=== PATIENT | female | born 2005 | race Caucasian/White ===

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

== ENCOUNTER 2025-02-12 21:00 | Emergency (ER) | payer SELFPAY ==
--- OUTSIDE RECORDS SUMMARY | 2024-12-20 11:30 | XMS_ITS | Encounter Summary ---
Author Organization [facility] Address [facility] [place] [address] Care Team Providers Care Aging Box Hand Name Role Phone Felecia Marie MD Primary Care Provider [phone] Source Comments This information has been disclosed to you from confidential records protectfrom disclosure by state law. You shall make no further disclosure of thisinformation without the specific, written, and informed release of theindividual to whom it pertains, or as otherwise permitted by law. A generalauthorization for the release of medical or other information is not sufficientfor the purposes of the release of HIV test results or diagnoses. [id number] Reason for Visit * Reason Comments New Consult - Oral Maxillofacial Surgery Encounter Details Date Type Department Care Team (Late st Contact Info) Description 12/20/2024 11:30 AM EST - 12/20/2024 11:59 PM [facility] Hospital Encounter [facility] hearing health technician at [facility] [address] [facility] [address] [place] [address] Polina Eagle DMD, MD [address] [facility]. [place] [phone] Storm Ayala DMD [facility] [place] [address] Dental caries (Primary Dx); Pericoronitis Discharge Disposition: Home or Self Care WITHOUT Home Care Services Social History Tobacco Use Types Packs/Day Years Used Date Smoking Tobacco: Never Assessed Comments Unknown Sex and Gender Information Value Date Recorded Sex Assigned at Not on file Legal Sex Female 9:54 PM EST Gender Identity Not on file Sexual Orientation Not on file documented as of this encounter Last Filed Vital Signs Vital Sign Reading Time Taken Comments Blood Pressure 136/106 12/20/2024 11:59 AM EST Pulse - - Temperature - - Respiratory Rate - - Oxygen Saturation - - Inhaled Oxygen Concentration - - Weight 116.1 kg (256 lb) 12/20/2024 11:59 AM EST Height 162.6 cm (5' 4 ) 12/20/2024 11:59 AM EST Body Mass Index 43.94 12/20/2024 11:59 AM EST documented in this encounter Functional Status * Encounter Vitals Question Answer Date of Assessment Author BP 136/106 12/20/2024 11:59 AM Andriy Leos Height 64 12/20/2024 11:59 AM Andriy Leos Weight 4096 12/20/2024 11:59 AM Andriy Leos * Weight in kg Answer Date of Assessment Author 116.12 12/20/2024 11:59 AM Andriy Godfrey * Height in cm Answer Date of Assessment Author 162.6 12/20/2024 11:59 AM Andriy Godfrey * Body Composition Question Answer Date of Assessment Author Weight Change (lbs) 0 12/20/2024 11:59 AM Andriy Boo * NARxCHECK Sedatives Score Answer Date of Assessment Author 000 12/20/2024 11:41 AM EST Interfac e, Doc Flowsheet In * NARxCHECK Stimulants Score Answer Date of Assessment Author 000 12/20/2024 11:41 AM EST Interfac e, Doc Flowsheet In * NARxCHECK Narcotics Score Answer Date of Assessment Author 000 12/20/2024 11:41 AM EST Interfac e, Doc Flowsheet In * Anthropometrics Question Answer Date of Assessment Author BMI (Calculated) 43.92 12/20/2024 11:59 AM Andriy Godfrey * HIDDEN-Infusion Dashboard Answer Date of Assessment Author 136 12/20/2024 11:59 AM Andriy Godfrey * BSA (Calculated - sq m) Answer Date of Assessment Author 2.29 12/20/2024 11:59 AM Andriy Godfrey * Height and Weight Question Answer Date of Assessment Author Percent Weight Change Since 0 025 11:59 AM EST Andriy Smith * Adult IBW/VT Calculations Question Answer Date of Assessment Author Low Range Vt 4 mL MALE 236.8 12/20/2024 11:59 A M EST Luis Andriy Low Range Vt 4 mL FEMALE 218.8 12/20/2024 11:59 AM EST Andriy Smith IBW/kg (Calculated) Male 59.2 12/20/2024 11:59 AM EST Shay Smithri Low Range Vt 6 mL MALE 355.2 12/20/2024 11:59 A M EST Smith Andriy Moderate Range Vt 8 mL MALE 473.6 12/20/2024 11 :59 AM EST Shay Smithri High Range Vt 10 mL MALE 592 12/20/2024 11:59 AM Andriy Godfrey IBW/kg (Calculated) FEMALE 54.7 12/20/2024 11: 59 AM EST Shay Smithri Low Range Vt 6 mL FEMALE 328.2 12/20/2024 11:59 AM EST Shay Smithri Moderate Range Vt 8 mL FEMALE 437.6 12/20/2024 11:59 AM EST Shay Smithri High Range Vt 10 mL FEMALE 547 12/20/2024 11: 59 AM Andriy Godfrey * LACE+ Score Answer Date of Assessment Author 11 12/21/2024 2:09 AM EST Prelude, Batch Job * Encounter Vitals Question Answer Date of Assessment Author BP 136/106 12/20/2024 11:59 AM EST Alhaji ierShayri Height 64 12/20/2024 11:59 AM EST Alhaji ier, Andriy Weight 4096 12/20/2024 11:59 AM EST Alhaji darianarShayri * Calculated Energy Needs Question Answer Date of Assessment Author Dunn St Jeor Equation (RMR) 1,921.21 12/20/2024 11:59 AM Andriy Godfrey Fluid Requirements (mL) 3,483.63 12/20/2024 11:59 AM Andriy Godfrey * Anthropometrics Question Answer Date of Assessment Author BMI (Calculated) 43.92 12/20/2024 11:59 AM Andriy Godfrey * BMI (Calculated) Answer Date of Assessment Author 44 12/20/2024 11:59 AM Andriy Godfrey * Adult IBW/VT Calculations Question Answer Date of Assessment Author IBW/kg (Calculated) Male 59.2 12/20/2024 11:59 AM Andriy Godfrey IBW/kg (Calculated) FEMALE 54.7 12/20/2024 11: 59 AM Andriy Godfrey * Anthropometrics Question Answer Date of Assessment Author Weight Change 0 12/20/2024 11:59 AM Andriy Doe documented as of this encounter Mental Status * Encounter Vitals Question Answer Entry Date Author BP 136/106 12/20/2024 11:59 AM Andriy Leos documented in this encounter Medications at Time of Discharge acetaminophen (TYLENOL) 500 MG tablet Take 2 tablets (1,000 mg total) by mouth every 6 hours as needed. 08/03/2024 AMOXicillin (AMOXIL) 875 MG tablet Take 1 tablet (875 mg total) by mouth in the morning and at bedtime. 06/21/2024 aspirin 81 MG chewable tablet Chew 1 tablet (81 mg total) by mouth daily. 01/25/2024 chlorhexidine (PERIDEX) 0.12 % solution TAKE 15ML BY MOUTH TWICE A DAY FOR 7 DAYS 12/06/2024 ibuprofen (MOTRIN) 600 MG tablet 08/03/2024 meloxicam (MOBIC) 15 MG tablet Take 1 tablet (15 mg total) by mouth daily. 11/28/2024 methylPREDNISolon e (MEDROL DOSEPACK) 4 mg tablet .COMPLEX 01/01/2022 sertraline (ZOLOFT) 100 MG tablet Take 1 tablet (100 mg total) by mouth daily. 05/09/2024 documented as of this encounter Progress Notes * Storm Ayala DMD - 12/20/2024 12:16 PM EST [facility] hearing health technician Visit Type: OMS URGENT Pt. Name: Cathy Morales Pt. : 2005 Sex: female Visit Date: 12/20/2024 Provider: Polina Eagle MD Resident: Storm Ayala DMD Location of Care: [facility] hearing health technician at [facility] I am here for a consultation for my third molars. HPI Cathy Morales is a/an 19 y.o. female referred from the [facility] ED for evaluation of 3rd molars. Pt reports episodic pain from all 3rd molars requiring analgesics. She went to the ED as she does not have a dentist and has been having difficulty getting established. Pt denies swelling, drainage, trismus, NVFC, dyspnea, dysphagia, dysphonia, shortness of breath, chest pain or any other symptoms. Past Med/Surg/Family/Social History: Allergies: Allergies[1] Medical History: Problem List[2] Medications: Current Outpatient Medications Medication Sig acetaminophen Take 2 tablets (1,000 mg total) by mouth every 6 hours as needed. AMOXicillin Take 1 tablet (875 mg total) by mouth in the morning and at bedtime. aspirin Chew 1 tablet (81 mg total) by mouth daily. chlorhexidine TAKE 15ML BY MOUTH TWICE A DAY FOR 7 DAYS ibuprofen meloxicam Take 1 tablet (15 mg total) by mouth daily. methylPREDNISolone .COMPLEX sertraline Take 1 tablet (100 mg total) by mouth daily. No current facility-administered medications for this encounter. No past surgical history on file. No family history on file. Social History Occupational History Not on file Tobacco Use Smoking status: Not on file Smokeless tobacco: Not on file Substance and Sexual Activity Alcohol use: Not on file Drug use: Not on file Sexual activity: Not on file ROS: Vitals: 12/20/24 1159 BP: (!) 136/106 Body mass index is 43.94 kg/m??. Review of Systems: 10-point ROS completed and is negative except noted in HPI. Objective: Maxillofacial: Atraumatic Normo-cephalic No facial swelling No cervical masses or LAD No pain to digital palpation - bilaterally No clicking/popping/crepitus of TMJ Normal anterior and laterotrusive movements No trismus CN II-XII intact Oral: Normal salivary flow, mucosa moist and pink Vestibular cellulitis of buccal mucosa adjacent to teeth #17 and 32 No uvular deviation, FOM soft and non-tender No signs of acute infection No purulence or drainage or fistulae noted No soft tissue pathology Third Molars: 1 - Erupted; Painful to palpation 16 - Erupted; Deep decay present 17 - PBI; Insufficient space for eruption and chronic pericoronitis, pain on percussion 32 - PBI; Insufficient space for eruption, chronic pericoronitis, and pain on percussion Airway Thyromental distance: > 6 cm Maximal incisal opening: > 40 mm Tongue Size: Normal Mallampati Classification: II Neck: no significant adenopathy, no scars, thyroid normal size Neuro: cranial nerves grossly intact, sensation grossly intact, non-focal, station & gait normal, appropriate mental status Psych: affect and mood appropriate, normal interaction Radiographic Evaluation/Imaging Maxillary sinuses are equal in size and radiodensity. Mandibular condyles are well-formed and seated in the glenoid fossa. No other radiographic evidence of maxillary or mandibular pathology. 1 - Erupted; distoangular 16 - Erupted; distoangular and deep decay present 17 - PBI; pericoronal radiolucency 32 - PBI; pericoronal radiolucency Assessment/Plan: ASA Classification: 3 Cathy Morales is a/an 19 y.o. female with symptomatic 3rds who elects for extraction under IVS. Pertinent med hx: Obesity, [id number] rapid metabolizer, PTSD. Despite BMI, between weight loss s/p delivery and body habitus, she is an appropriate candidate for IVS. Indications for removal: Pericoronitis Caries Pain Impaction/Insufficient space for eruption See clinical and radiographic exam for more details. Return for extraction of teeth #1, 16, 17, and 32 with IVS. Informed consent will be obtained on day of surgery. Risks, benefits, complications and treatment options discussed with patient. Pre-operative instructions: NPO and responsible adult escort. Referral for reference: -[facility] and teeth are indicated to be extracted STORM AYALA DMD 12/20/2024 12:23 PM [facility] [address] [facility] [address] [facility] [address] Dept: [phone] Loc: [phone] OM Treatment Plan Anesthesia Type: Deep sedation Procedure: Ext of 3rd molars Schedule Guidelines:Schedule in normal time Pre-Procedural Instructions: No special instructions Were home medications reviewed and instructions provided? Yes Estimated Procedure Time: 30 minutes [1] Allergies Allergen Reactions Bupropion Other (See Comments) Caused suicidal thoughts Fluoxetine Other (See Comments) Numbness in hands and feet Metoclopramide Anxiety [2] Patient Active Problem List Diagnosis Abdominal pain PTSD (post-traumatic stress disorder) [id number] rapid metabolizer ([facility]) Cosigned by Polina Eagle DMD, MD at 12/20/2024 2:15 PM EST Associated attestation - Polina Eagle DMD, MD - 12/20/2024 2:15 PM EST I saw and evaluated the patient, and discussed with the resident. I agree with the resident???s findings and plan as documented in the resident???s note. Polina Eagle DMD, MD documented in this encounter Plan of Treatment Not on file documented as of this encounter Visit Diagnoses Diagnosis Dental caries- Primary Unspecified dental caries Pericoronitis Chronic periodontitis, unspecified documented in this encounter Care Teams Aging Box Hand Relationship Specialty Start Date End Date Felecia Marie MD [address] [place] [address] [id number] RAFA Fletcher [phone] PCP - General Family Medicine 11/14/24 documented as of this encounter
--- OUTSIDE RECORDS SUMMARY | 2024-12-26 16:00 | XMS_ITS | Encounter Summary ---
Author Organization [facility] Address [place] [address] Care Team Providers Care Crime Scene Technician Name Role Phone Felecia Marie DO Primary Care Provider Reason for Visit * Reason Comments Anxiety Wants to be on meds for anxiety Encounter Details Date Type Department Care Team (Late st Contact Info) Description 12/26/2024 4:00 PM EST Office Visit [facility] [address] [place] [phone] Felecia Marie DO [address] [place] [address] Anxiety and depression (Primary Dx) Social History Tobacco Use Types Packs/Day Years Used Date Smoking Tobacco: Never Smokeless Tobacco: Former Tobacco Cessation:Counseling Given: Not Answered Alcohol Use Standard Drinks/Week Comments No 0 (1 standard drink = 0.6 oz pur e alcohol) [facility] Utilities Answer Date Recorded In the past 12 months has e electric, gas, oil, or water company threatened to shut off services in your home? No 08/02/2024 Overall Financial Resource Strain (CARDIA) Denise r Date Recorded How hard is it for you to pa y for the very basics like food, housing, medical care, and heating? Not very hard 08/02/2024 PHQ-2 Answer Date Recorded PHQ-2 Total Score 2 08/25/2024 [employer] [place] [facility] - Occupational Stress Questionnaire Answer Date Recorded Do you feel stress - tense, restless, nervous, or anxious, or unable to sleep at night because your mind is troubled all the time - these days? Not at all 08/02/2024 Exercise Vital Sign Answer Date Recorde d On average, how many days pe r week do you engage in moderate to strenuous exercise (like a brisk walk)? 0 days 08/02/2024 On average, how many minutes do you engage in exercise at this level? 0 min 08/02/2024 Hunger Vital Sign Answer Date Recorded Within the past 12 months, y ou worried that your food would run out before you got the money to buy more. Never true 08/03/19 25 Within the past 12 months, t he food you bought just didn't last and you didn't have money to get more. Never true 08/02/2024 PRAPARE - Transportation Answer Date Re corded In the past 12 months, has l ack of transportation kept you from medical appointments or from getting medications? No 11/16 In the past 12 months, has l ack of transportation kept you from meetings, work, or from getting things needed for daily living? No 12/05/2019 [facility] IP Transportation Answer D ate Recorded In the past 12 months, has l ack of reliable transportation kept you from medical appointments, meetings, work or from getting things needed for daily living? No 08/02/2024 Sexually Active Control Partners Comments Not Currently Male Comments Unknown Sex and Gender Information Value Date Recorded Sex Assigned at Not on file Legal Sex Female 9:14 PM EDT Gender Identity Not on file Sexual Orientation Not on file documented as of this encounter Last Filed Vital Signs Vital Sign Reading Time Taken Comments Blood Pressure 100/70 12/26/2024 4:02 PM EST Pulse 80 12/26/2024 4:02 PM EST Temperature 36.9 C (98.4 F) 12/26/2024 4:02 PM EST Respiratory Rate 18 12/26/2024 4:02 PM EST Oxygen Saturation 98% 12/26/2024 4:02 PM EST Inhaled Oxygen Concentration - - Weight 116.6 kg (257 lb) 12/26/2024 4:02 PM EST Height 162.6 cm (5' 4 ) 12/26/2024 4:02 PM EST Body Mass Index 44.11 12/26/2024 4:02 PM EST documented in this encounter Functional Status * Question Answer Date of Assessment Author Is the person deaf or does h e/she have serious difficulty hearing? No 12/26/2024 4:02 PM EST Aden Ferguson MA Is the person blind or does he/she have serious difficulty seeing even when wearing glasses? No 12/26/2024 4:02 PM EST Aden Iyer MA Does this person have seriou s difficulty walking or climbing stairs? No 12/26/2024 4:02 PM EST Aden Iyer M A Does this person have diffic ulty dressing or bathing? No 12/26/2024 4:02 PM Aden Pierre MA * Is the person deaf or does he/she have serious difficulty hearing? Answer Date of Assessment Author No 12/26/2024 4:02 PM EST Mikala Iyer MA * Is the person blind or does he/she have serious difficulty seeing even when wearing glasses? Answer Date of Assessment Author No 12/26/2024 4:02 PM EST Mikala Iyer MA * Does this person have serious difficulty walking or climbing stairs? Answer Date of Assessment Author No 12/26/2024 4:02 PM Mikala Pierre MA * Does this person have difficulty dressing or bathing? Answer Date of Assessment Author No 12/26/2024 4:02 PM Mikala Pierre MA * Because of a physical, mental or emotional condition, does this person have difficulty doing errands alone such as visiting a doctor's office or shopping? Answer Date of Assessment Author No 12/26/2024 4:02 PM Mikala Pierre MA documented as of this encounter Mental Status * Question Answer Entry Date Author Because of a physical, menta l or emotional condition, does this person have difficulty doing errands alone such as visiting a doctor's office or shopping? No 12/26/2024 4:02 PM Aden Pierre M A Because of a physical, menta l or emotional condition, does this person have serious difficulty concentrating, remembering or making decisions? No 12/26/2024 4:02 PM Aden Pierre M A * Because of a physical, mental or emotional condition, does this person have serious difficulty concentrating, remembering or making decisions? Answer Entry Date Author No 12/26/2024 4:02 PM Mikala Pierre MA documented in this encounter Ordered Prescriptions Prescription Sig Dispense Quantity Refills Last Filled Start Date End Date hydrOXYzine (ATARAX) 25 mg Oral TabletIndications: Anxiety and depression Take 1 Tablet by mouth 3 times daily as needed for Itching. 90 Tablet 2 12/26/2024 DULoxetine (CYMBALTA) 30 mg Oral Capsule, Delayed Release(E.C.)Indic ations:Anxiety and depression Take 1 Capsule by mouth daily. 30 Capsule 2 12/26/2024 documented in this encounter Progress Notes * Felecia Marie DO - 12/26/2024 4:00 PM ESTAssociated Problem(s): Anxiety and depression Start cymbalta Follow up in 3 weeks PRN atarax when passenger of car rides (she does not drive) Orders: DULoxetine (CYMBALTA) 30 mg Oral Capsule, Delayed Release(E.C.); Take 1 Capsule by mouth daily. hydrOXYzine (ATARAX) 25 mg Oral Tablet; Take 1 Tablet by mouth 3 times daily as needed for Itching. * Felecia Marie DO - 12/26/2024 4:00 PM EST Assessment & Plan Anxiety and depression Start cymbalta Follow up in 3 weeks PRN atarax when passenger of car rides (she does not drive) Orders: DULoxetine (CYMBALTA) 30 mg Oral Capsule, Delayed Release(E.C.); Take 1 Capsule by mouth daily. hydrOXYzine (ATARAX) 25 mg Oral Tablet; Take 1 Tablet by mouth 3 times daily as needed for Itching. Felecia Marie DO Family Medicine 12/26/2024 Progress Note: Vitals: 12/26/24 1602 BP: 100/70 Pulse: 80 Resp: 18 Temp: 98.4 ??F (36.9 ??C) TempSrc: Temporal SpO2: 98% Weight: 257 lb (116.6 kg) Height: 5' 4 (1.626 m) Body mass index is 44.11 kg/m??. SUBJECTIVE: Chief Complaint Patient presents with Anxiety Wants to be on meds for anxiety HPI: 19 year old female who presents for follow up on anxiety and depression. Stopped prozac. High anxiety with car rides. Review of Systems Psychiatric/Behavioral: The patient is nervous/anxious. All other systems reviewed and are negative. OBJECTIVE: Physical Exam Vitals reviewed. Constitutional: Appearance: Normal appearance. Cardiovascular: Rate and Rhythm: Normal rate. Neurological: Mental Status: She is alert. Psychiatric: Attention and Perception: Attention normal. Mood and Affect: Mood is anxious. Speech: Speech normal. Behavior: Behavior is cooperative. Thought Content: Thought content normal. Cognition and Memory: Cognition normal. Judgment: Judgment normal. documented in this encounter Plan of Treatment Not on file documented as of this encounter Goals Goal Patient Goal Type Associated Problems Recent Progress Patient-Stated? Author Maintain a healthy diet, exercise regularly and maintain an ideal body weight General No Mary Payne CCMA Stay Tobacco Free Lifestyle No Felecia Marie DO documented as of this encounter Visit Diagnoses Diagnosis Anxiety and depression- Primary Dysthymic disorder documented in this encounter Additional Health Concerns Assessment Noted Time PHQ-9 Depression Total Score: 2 08/26/19 1:32 AM EDT PHQ-2 Depression Total Score: 2 08/26/19 1:32 AM EDT documented as of this encounter Care Teams Crime Scene Technician Relationship Specialty Start Date End Date Felecia Marie DO [employer] [place] [id number] PCP - General Family Medicine 11/08/24 documented as of this encounter
--- OUTSIDE RECORDS SUMMARY | 2025-01-25 10:20 | XMS_ITS | Encounter Summary ---
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 Name Role Phone Felecia Marie DO Primary Care Provider [phone] Reason for Referral * MRI/CAT Scan (Urgent) - Pending Review Specialty Diagnoses / Procedures Referred By Contac t Referred To Contact Radiology Diagnoses Lymphadenopathy Procedures CT SOFT TISSUE NECK W CONTRAST Felecia Marie DO [address] [place] [address] Phone: tel: fax: Referral ID Status Reason Start Date Expiration Date V isits Requested Visits Authorized [id number] Pending Review 01/25/2025 01/25/2026 1 1 Reason for Visit * Reason Comments Anxiety Wants to talk about anxiety meds Rash Pt reports she break s out in hives after every shower Mass On right side of nec k sxs 3-4 days Encounter Details Date Type Department Care Team (Late st Contact Info) Description 01/25/2025 10:20 AM EST Office Visit [facility] [place] [address] [place] [address] Felecia Marie DO [address] [facility] [place] [address] Anxiety and depression (Primary Dx); Lymphadenopathy; Rash Social History Tobacco Use Types Packs/Day Years Used Date Smoking Tobacco: Never Smokeless Tobacco: Former Tobacco Cessation:Counseling Given: Not Answered Alcohol Use Standard Drinks/Week Comments No 0 (1 standard drink = 0.6 oz pur e alcohol) [facility] Utilities Answer Date Recorded In the past 12 months has th e electric, gas, oil, or water company threatened to shut off services in your home? No 08/02/2024 Overall Financial Resource Strain (CARDIA) Answe r Date Recorded How hard is it for you to pa y for the very basics like food, housing, medical care, and heating? Not very hard 08/02/2024 PHQ-2 Answer Date Recorded PHQ-2 Total Score 2 08/25/2024 [facility] - Occupational Stress [...] things needed for daily living? No 12[facility]05/2019 [facility] IP Transportation Answer D ate Recorded [...] Sign Reading Time Taken Comments Blood Pressure 122/84 01/25/2025 10:17 AM EST Pulse 83 01/25/2025 10:17 AM EST Temperature 36.8 C (98.3 F) 01/25/2025 10:17 AM EST Respiratory Rate 18 01/25/2025 10:17 AM EST Oxygen Saturation 98% 01/25/2025 10:17 AM EST Inhaled Oxygen Concentration - - Weight 117.9 kg (260 lb) 01/25/2025 10:17 AM EST Height 162.6 cm (5' 4 ) 01/25/2025 10:17 AM EST Body Mass Index 44.63 01/25/2025 10:17 AM EST documented in this encounter Functional Status * Is the person deaf or does he/she have serious difficulty hearing? Answer Date of Assessment Author No 12/26/2024 4:02 PM Mikala Pierre MA * Is the person blind or does he/she have serious difficulty seeing even when wearing glasses? Answer Date of Assessment Author No 12/26/2024 4:02 PM Mikala Pierre MA * Does this person have serious [...] as of this encounter Mental Status * Because of a physical, mental or emotional condition, does this person have serious difficulty concentrating, remembering or making decisions? Answer Entry Date Author No 12/26/2024 4:02 PM Mikala Pierre MA documented in this encounter Progress Notes * Felecia Marie, - 01/25/2025 10:20 AM ESTAssociated Problem(s): Anxiety and depression Has improved with cymbalta Was able to drive today to visit Continue current dose * Felecia Marie DO - 01/25/2025 10:20 AM EST Assessment & Plan Anxiety and depression Has improved with cymbalta Was able to drive today to visit Continue current dose Lymphadenopathy New right sided tender lymphadenopathy. Reports night sweats. Reports recent dental infection on the right side of jaw but has been off antibiotic now for a few weeks. Orders: CBC WITH DIFF; Future CT SOFT TISSUE NECK W CONTRAST; Future COMPREHENSIVE METABOLIC PANEL; Future Rash Only occurs after showers Will evaluate for soap contact dermatitis reaction. History and photos are not consistent with this Recommended luke warm showers Consider antihistamine for possible cholinergic urticaria Orders: CBC WITH DIFF; Future COMPREHENSIVE METABOLIC PANEL; Future Felecia Marie DO Family Medicine 01/25/2025 Progress Note: Vitals: 01/25/25 1017 BP: 122/84 Pulse: 83 Resp: 18 Temp: 98.3 ??F (36.8 ??C) TempSrc: Temporal SpO2: 98% Weight: 260 lb (117.9 kg) Height: 5' 4 (1.626 m) Body mass index is 44.63 kg/m??. SUBJECTIVE: Chief Complaint Patient presents with Anxiety Wants to talk about anxiety meds Rash Pt reports she breaks out in hives after every shower Mass On right side of neck sxs 3-4 days HPI: 19 year old female who presents with rash of the skin after showering for the past few weeks. Hive like appearance. Only occurs after showers on the shoulders, back, chest. -anxiety has improved significantly -reports tender swollen knot on the right side of the neck that developed a few weeks ago. She doesreports a recent antibiotic course for right jaw infection but has been off this for a few weeks. Does report night sweats for a few weeks. Review of Systems Constitutional: Night sweats Psychiatric/Behavioral: The patient is nervous/anxious (improving). All other systems reviewed and are negative. OBJECTIVE: Physical Exam Vitals reviewed. Constitutional: General: She is not in acute distress. Appearance: Normal appearance. She is not ill-appearing. Cardiovascular: Rate and Rhythm: Normal rate. Pulmonary: Effort: Pulmonary effort is normal. Lymphadenopathy: Cervical: Cervical adenopathy present. Right cervical: Superficial cervical adenopathy (tender, mobile) present. Neurological: Mental Status: She is alert. Psychiatric: Attention and Perception: Attention normal. Mood and Affect: Mood is anxious. Affect is tearful. Behavior: Behavior normal. Behavior is cooperative. Thought Content: Thought content normal. Cognition and Memory: Cognition normal. Judgment: Judgment normal. * Keri Craig - 01/25/2025 10:20 AM EST Venipuncture in the right antecubital vein with 21 gauge needle, length 1 1/2 inch. documented in this encounter Miscellaneous Notes * Patient Instructions - Felecia Marie DO - 01/25/2025 10:20 AM EST Please call Central [phone] to set up your imaging documented in this encounter Plan of Treatment Scheduled Orders Name Type Priority Associated Diagnoses Orde r Schedule CT SOFT TISSUE NECK W CONTRAST Imaging [facility] Lymphadenopathy 1 Occurrences starting 01/25/2025 until 01/25/2026 documented as of this encounter Goals Goal Patient Goal Type Associated Problems Recent Progress Patient-Stated? Author Maintain a healthy diet, exercise regularly and maintain an ideal body weight General No Mary Payne CCMA Stay Tobacco Free Lifestyle No Felecia Marie DO documented as of this encounter Procedures Procedure Name Priority Date/Time Associated Diagnosis Comments CBC WITH DIFF Routine 01/25/2025 11:03 AM EST Lymphadenopathy Rash COMPREHENSIVE METABOLIC PANEL Routine 01/25/2025 11:03 AM EST Rash Lymphadenopathy documented in this encounter Results * (ABNORMAL) COMPREHENSIVE METABOLIC PANEL (01/25/2025 11:03 AM EST) Sodium 138 136 - 145 mmol/L 01/25/2025 3:32 PM EST [facility] Potassium 4.0 3.5 - 5.0 mmol/L 01/25/2025 3:32 PM EST [facility] Chloride 105 98 - 107 mmol/L 01/25/2025 3:32 PM EST [facility] Total CO2 21(L) 22 - 29 mmol/L 01/25/2025 3:32 PM EST [facility] Anion Gap 12 7 - 16 mmol/L 01/25/2025 3:32 PM EST [facility] Calcium 9.2 8.6 - 10.4 mg/dL 01/25/2025 3:32 PM EST [facility] Glucose Lvl 92 70 - 99 mg/dL 01/25/2025 3:32 PM EST [facility] BUN 11 6 - 20 mg/dL 01/25/2025 3:32 PM EST [facility] Creatinine 0.75 0.51 - 1.30 mg/dL 01/25/2025 3:32 PM EST [facility] Albumin 4.2 3.5 - 5.2 gm/dL 01/25/2025 3:32 PM EST [facility] Total Protein 6.6 6.4 - 8.3 gm/dL 01/25/2025 3:32 PM EST [facility] Bili Total 0.3 0.2 - 1.3 mg/dL 01/25/2025 3:32 PM EST [facility] ALT 18 <=41 U/L 01/25/2025 3:32 PM EST [facility] AST 17 <=40 U/L 01/25/2025 3:32 PM EST [facility] Alk Phos 84 36 - 123 U/L 01/25/2025 3:32 PM EST [facility] eGFR (CKD-EPIcr 2020) 116 >=60 mL/min/1.7 3 m2 01/25/2025 3:32 PM EST [facility] Comment:Estimated GFR was ca lculated using the CKD-EPIcr (2020) equation refit without race. The equation is recommended by the National Kidney Foundation - [place] [employer] Neph[employer] Task Force. Blood VENOUS BLOOD / Unknown Venipuncture / Unknown 01/25/2025 11:03 AM EST 01/25/2025 11:03 AM EST us Felecia Marie DO CHEMISTRY ORDERABLES Final R esult [facility] [address] [facility] [facility] , [place] [address] * (ABNORMAL) CBC WITH DIFF (01/25/2025 11:03 AM EST) WBC 7.6 3.7 - 10.3 x10(3)/mcL 01/25/2025 2:40 PM EST [facility] RBC 4.46 3.90 - 5.20 x10(6)/mcL 01/25/2025 2:40 PM EST [facility] Hgb 11.9 11.2 - 15.7 g/dL 01/25/2025 2:40 PM EST [facility] Hct 37.5 34.0 - 45.0 % 01/25/2025 2:40 PM EST [facility] MCV 84.1 80.0 - 100.0 fL 01/25/2025 2:40 PM EST [facility] MCH 26.7 26.0 - 34.0 pg 01/25/2025 2:40 PM EST [facility] MCHC 31.7 30.7 - 35.5 g/dL 01/25/2025 2:40 PM EST [facility] RDW 15.2(H) <=14.9 % 01/25/2025 2:40 PM EST [facility] Platelet 313 155 - 369 x10(3)/mcL 01/25/2025 2:40 PM EST [facility] MPV 11.4 8.8 - 12.5 fL 01/25/2025 2:40 PM EST [facility] Neut Percent 59.5 % 01/25/2025 2:40 PM EST [facility] Comment:Neutrophils equals s egs plus bands Imm Gran% 0.3 % 01/25/2025 2:40 PM EST [facility] Comment:Automated count of m etamyelocytes, myelocytes and promyelocytes. Lymph Percent 28.3 % 01/25/2025 2:40 PM EST [facility] [place] Percent 7.3 % 01/25/2025 2:40 PM EST [facility], [facility] Eos Percent 4.1 % 01/25/2025 2:40 PM EST [facility], [facility] Baso Percent 0.5 % 01/25/2025 2:40 PM EST [facility] Neut # 4.5 1.6 - 6.1 x10(3)/mcL 01/25/2025 2:40 PM EST [facility] Comment:Neutrophils equals s egs plus bands IMMGRAN# 0.0 0.0 - 0.1 x10(3)/mcL 01/25/2025 2:40 PM EST [facility] [place], [facility] Comment:Automated count of m etamyelocytes, myelocytes and promyelocytes. An absolute IG <0.1 is reported as 0.0. Lymph # 2.1 1.2 - 3.9 x10(3)/mcL 01/25/2025 2:40 PM EST [facility] [place] # 0.6 0.3 - 0.9 x10(3)/mcL 01/25/2025 2:40 PM EST [facility], [facility] Eos# 0.3 0.0 - 0.5 x10(3)/mcL 01/25/2025 2:40 PM EST [facility], [facility] Baso # 0.0 0.0 - 0.1 x10(3)/mcL 01/25/2025 2:40 PM EST [facility], [facility] Blood VENOUS BLOOD / Unknown Venipuncture / Unknown 01/25/2025 11:03 AM EST 01/25/2025 11:03 AM EST Felecia Marie DO HEMATOLOGY ORDERABLES Final Result [facility] [place], [facility] [address], [address] [place] [id number] documented in this encounter Visit Diagnoses Diagnosis Anxiety and depression- Primary Dysthymic disorder Lymphadenopathy Enlargement of lymph nodes Rash Rash and other nonspecific skin eruption documented in this encounter Discontinued Medications Medication Sig Discontinue Reason Start Date End Da te cyclobenzaprine (FLEXERIL) 5 mg Oral TabletIndications:Pro truded lumbar disc Take 1-2 Tablets by mouth every 8 hours as needed for Muscle spasms (muscle spasms associated with opioid withdrawal). Patient Reported not taking medication 11/28/2024 01/25/2025 documented as of this encounter Additional Health Concerns Assessment Noted Time PHQ-9 Depression Total Score: 2 08/26/19 1:32 AM EDT PHQ-2 Depression Total Score: 2 08/26/19 1:32 AM EDT documented as of this encounter Care Teams Roller [employer] Utility Worker Relationship Specialty Start Date End Date Felecia Marie DO [address] [place] [address] PCP - General Family Medicine 11/08/24 documented as of this encounter
--- NOTE | 2025-02-12 21:12 | ED_ITS ---
Discharge Plan Disposition Patient Disposition: Home, Self-Care Prescriptions Prescriptions: No Action methylprednisolone 4 mg tablets,dose pack See Rx Instructions PO PER PKG DIR Qty: 21 0RF Rx Instructions: PO PER PKG DIR [id number] [Bromfed DM] 2-30-10 mg/5 mL syrup 5 ml PO Q4-6H PRN (Reason: cold symptoms) Qty: 240 0RF fluticasone propionate 50 mcg/actuation spray,suspension 1 spray intranasal DAILY Qty: 16 2RF Rx Instructions: administer into each nostril ondansetron 4 mg tablet,disintegrating 4 mg PO Q8H PRN (Reason: nausea and vomiting) Qty: 7 0RF Referrals Follow up/Referrals: Provider,Referral, MD [Primary Care Provider, Medical] - See instructions Activity Restrictions/Add. Instructions Additional Instructions/Restrictions: Encourage you to follow-up with your primary care doctor if symptoms do not improve. You can take Tylenol, ibuprofen to help with your symptoms. You stated you have Zofran at home. You can take this as prescribed. If you develop any new or worsening symptoms, or if you become concerned for your health for any reason, return to the emergency department for evaluation. Clinical Impressions Clinical Impression: Abdominal pain Instructions Patient Instructions: DI for Acute Abdominal Pain Print Language Print Language: Malagasy Discharge ED Provider: Job Copeland Adult HPI General Chief complaint: Abdominal Pain Stated complaint: severe abdominal pain,started underbreastbone Time Seen by Provider: 02/12/25 21:03 History of Present Illness HPI narrative: Cathy Morales is a 19-year-old female with a past medical history of tonsillectomy, anxiety who presents to the emergency department for complaints of 2 days of stabbing right upper quadrant abdominal pain and nausea. Patient states that she has had pain in her right upper quadrant that radiates to her shoulder for the past 2 days it is worse with eating. She states that tonight she last ate at approximately 6:00 patient states that she is nauseated but has not vomited. She denies any diarrhea or fever. She denies any chest pain or shortness of breath. She denies any dysuria or hematuria. She reports no issues that she is aware of with her gallbladder but states that multiple members of her family have had their gallbladders removed. She denies any abdominal surgeries. Related Data Previous Rx's ?Medication ?Instructions ?Recorded gkaarnjtjtoemhf-funsxrylylthyny-AK 5 ml PO Q4-6H PRN c old symptoms 04/09/22 2 mg-30 mg-10 mg/5 mL oral syrup #240 mL (Bromfed DM) fluticasone propionate 50 1 spray intranasal DAILY #16 grams 04/09/22 mcg/actuation nasal spray,suspension methylprednisolone 4 mg tablets in See Rx Instructions PO PER PKG DIR 04/09/22 a dose pack #21 tabs ondansetron 4 mg disintegrating 4 mg PO Q8H PRN nausea and 04/22/22 tablet vomiting #7 tabs Allergies Allergy/AdvReac Type Severity Reaction Status Date / Time metoclopramide (From Reglan) AdvReac Anxiety Verified 02[facility]12[facility]25 21:[facility] Disclaimer: The information contained in this section may have been updated after the patient was seen, as this information can be updated by other users. Medical History Anxiety Surgical History History of tonsillectomy History of tympanostomy tube placement Social History Smoking Status: Current every day smoker alcohol intake: never substance use type: denies use current occupational status: student Travel in the last 8 weeks?: None household members: family housing: house Have you lived/traveled outside US in past 30 days?: No Contact w/someone who lives/traveled outside US past 30 days?: No Exposure to someone with infectious disease in past 14 days?: No Do you have a fever (greater than 100.4 F or 38 C)?: No Have you tested positive for COVID-19?: No Exposed to someone with COVID-19 in past 14 days?: No Do you have a sore throat?: No Do you have a cough?: No Do you have any weakness?: No Do you have any diarrhea?: No Are you experiencing any unusual bleeding?: No Do you have any muscle aches/pain?: No Do you have any abdominal pain?: Yes Are you experiencing loss of taste or smell?: No Other Medical History Have you received the Flu Vaccine for this season: No Have you received the Pneumonia Vaccine: No ROS Obtained: Yes Systems reviewed as appropriate & no additional complaints except as documented Physical Exam General General appearance: alert and in no apparent distress Head Head exam: atraumatic Eye Eye exam: Present normal appearance ENT ENT exam: Present normal external ear exam Neck Neck exam: Present full ROM Chest Chest inspection: Present symmetric chest wall rise Respiratory Respiratory exam: Present normal lung sounds bilaterally; Absent respiratory distress, wheezes or stridor Cardiovascular Cardiovascular exam: Present regular rate and normal rhythm Abdominal Exam Abdominal exam: Present soft, tenderness (Generalized but more focally in the right upper quadrant) and Alfonso's sign; Absent distention, guarding or rigidity Extremities Exam Extremities exam: Present normal inspection Back Exam Back exam: Present normal inspection Neurological Exam Neurological exam: Present alert and oriented X3 Psychiatric Psychiatric exam: Present normal affect Skin Skin exam: Present warm and dry Medical Decision Making Medical Records Screening: Per USPSTF and CDC recommendations, given the prevalence of disease in our region, it is our hospital?s policy to screen for HIV and viral Hepatitis for all patients aged 18 and over and those with ongoing risk factors. Medardo Inquiry Pt receiving controlled substance: No Vital Signs: 02/12/25 21:39 Temperature 98.6 F Temperature Source Oral Pulse Rate [Left] 72 Respiratory Rate 16 Blood Pressure [Right Arm] 124/80 Blood Pressure Mean [Right Arm] 94 Blood Pressure Source [Right Arm] Automatic Cuff 02 Sat by Pulse Oximetry 98 Oxygen Delivery Method Room Air Lab Data Lab Results 02/12/25 21:07: Urine Color Yellow, Urine Appearance Sl cloudy, Urine pH 6.0, Ur Specific [place] 1.025, Urine Protein Negative, Urine Glucose (UA) Negative, Urine Ketones Negative, Urine Blood Negative, Urine Nitrate Negative, Urine Bilirubin Negative, Urine Urobilinogen 0.2, Ur Leukocyte Esterase Negative, Urine RBC 5-10, Urine WBC 10-20, Ur Squamous Epith Cells 10-20, Urine Bacteria 3+, Urine Mucus 4+, Urine HCG, Qual Negative 02/12/25 21:26: WBC 9.9, RBC 4.64, Hgb 12.5, Hct 39.2, MCV 84.5, MCH 26.9 L, MCHC 31.9, RDW 14.8, Plt Count 342, MPV 11.0 H, Neut % (Auto) 63.0, Lymph % (Auto) 27.6, [place] % (Auto) 5.3, Eos % (Auto) 3.2, Baso % (Auto) 0.6, Neut # (Auto) 6.2, Lymph # (Auto) 2.7, [place] # (Auto) 0.5, Eos # (Auto) 0.3, Baso # (Auto) 0.1, PT 10.9, INR 0.98, Sodium 137, Potassium 4.3, Chloride 104, Carbon Dioxide 25, Anion Gap 12.3, BUN 13, Creatinine 0.90, Estimated Creat Clear 87, Estimated GFR 81, Est GFR ( Amer) 98, Glucose 95, Calcium 9.8, Total Bilirubin 0.4, AST 27, ALT 29, Alkaline Phosphatase 87, C-Reactive Protein 5.3 H , Total Protein 7.6, Albumin 4.6, Globulin 3.0, Albumin/Globulin Ratio 1.5, Lipase 67, HIV Ag/Ab Combo Qual Negative 02/12/25 21:52: Lactate 0.7 02/12/25 21:26 02/12/25 21:26 Orders (Tests/Meds): ED MEDICATIONS Generic Name Dose Route Start Last Admin Trade Name Freq PRN Reason Stop Dose Admin Ketorolac Tromethamine 15 mg 02/12/25 22:44 Ketorolac 15mg/Ml Vial IV 02/12/25 22:45 ONCE ONE Sodium Chloride 10 ml 02/12/25 22:14 02/12/25 22:15 Sodium Chloride 0.9% 10ml Syr (Rad Only) IV 03/14/25 22:13 10 ml NEEDED PRN Administration Maintain IV Site Discontinued Medications Generic Name Dose Route Start Last Admin Trade Name Freq PRN Reason Stop Dose Admin Iopamidol 75 ml 02/12/25 22:14 02/12/25 22:15 Iopamidol-370 (76%);100ml Bottle IV 02/12/25 22:15 75 ml ONCE ONE Administration Morphine Sulfate 4 mg 02/12/25 21:10 02/12/25 21:51 Morphine 4mg/Ml Syringe IV 02/12/25 21:11 4 mg ONCE ONE Administration Ondansetron HCl 4 mg 02/12/25 21:10 02/12/25 21:51 Ondansetron 4mg/2ml Vial IV 02/12/25 21:11 4 mg ONCE ONE Administration ORDERS Category Date Time Status CT abdomen pelvis w con Stat Cat Scan 02/12/25 21:28 Completed POCUS Point of Care (ER Only) Stat Exams 02/12/25 21:10 Completed CBC w/Auto Diff [Complete Blood Count Auto Diff] Stat Lab 02/12/25 21:26 Completed CMP [Comprehensive Metabolic Panel] Stat Lab 02/12/25 21:26 Completed CRP [C-Reactive Protein] Stat Lab 02/12/25 21:26 Completed HIV Combo Stat Lab 02/12/25 21:26 Completed Hepatitis C Ab Qual. W/ RFX Stat Lab 02/12/25 21:26 Received Lactic Acid Stat Lab 02/12/25 21:52 Completed Lipase Stat Lab 02/12/25 21: Completed PT INR [Prothrombin Time INR] Stat Lab 02/12/25 21:26 Completed UA [Urinalysis and Microscopic] Stat Lab 02/12/25 21:07 Completed Urine , HCG Qual. Stat Lab 02/12/25 21:07 Completed Urine Culture Stat Micro 02/12/25 21:07 Received Medical Decision Narrative: Cathy Morales is a 19-year-old female with a past medical history of tonsillectomy, anxiety who presents to the emergency department for complaints of 2 days of stabbing right upper quadrant abdominal pain and nausea. Patient states that she has had pain in her right upper quadrant that radiates to her shoulder for the past 2 days it is worse with eating. She states that tonight she last ate at approximately 6:00 patient states that she is nauseated but has not vomited. She denies any diarrhea or fever. She denies any chest pain or shortness of breath. She denies any dysuria or hematuria. She reports no issues that she is aware of with her gallbladder but states that multiple members of her family have had their gallbladders removed. She denies any abdominal surgeries. On arrival, patient is hemodynamically stable, afebrile, in no acute distress. She is breathing comfortably on room air. Abdominal exam shows generalized abdominal tenderness without guarding or rebound but more focal tenderness in right upper quadrant. Positive Alfonso sign. Differential diagnosis includes, but is not limited to: Acute cholecystitis, choledocholithiasis, cholelithiasis, acute pancreatitis, gastritis, GERD, acute pancreatitis, among others. The most morbid conditions were considered and workup was based on these. Workup in the emergency department included: Hematologic labs, urine studies, right upper quadrant [id number] ultrasound, CT abdomen pelvis with IV contrast. Patient was administered 4 mg of IV morphine and 4 mg of IV Zofran for symptoms After studies are grossly unremarkable nonactionable. No elevated white blood cell count. Coagulation studies within normal limits. No SONDRA. Electrolytes within norm limits. Liver enzyme and bilirubin within normal notes. CRP mildly elevated at 5.3. Urinalysis without evidence of infection. [id number] right upper quadrant ultrasound was performed by me personally and was unremarkable for any cholelithiasis, biliary sludge, pericholecystic fluid or common bile duct dilation. See procedure note for details CT abdomen pelvis was interpreted by me personally. No acute findings on CT abdomen pelvis. See final radiology report for details On reassessment, patient still reporting some pain. Will administer 15 mg of IV Toradol. Patient states that she has Zofran at home. I recommend she take this to help with her nausea. Also recommended NSAIDs, such as ibuprofen as well as Tylenol to help with her symptoms. Recommended follow-up with her primary care doctor. Return precautions were given. All questions were answered. She demonstrated understanding and was agreement this plan. She was then discharged from the emergency department in stable condition Critical Care Critical Care Time Critical Care Time: No
[2025-02-12 21:15] LABS: Microscopic, Urine URINE MICROSCOPIC (MICROSCOPIC)
[2025-02-12 21:16] LABS: Bilirubin,Urine Negative (Negative); Color,Urine YELLOW (Yellow); Glucose,Urine (UA) Negative (Negative); Ketones,Urine Negative (Negative); Leukocyte Esterase,Urine Negative (Negative); PH,Urine 6.0 (5.0-8.5); Protein,Urine Negative (Negative); Specific Gravity, Urine 1.025 (1.005-1.030); Urobilinogen,Urine 0.2 EU/dl (0.2)
--- NOTE | 2025-02-12 21:28 | CT_ITS ---
PROCEDURE INFORMATION: Exam: CT Abdomen And Pelvis With Contrast Exam date and time: 02/12/2025 10:06 PM Age: 19 years old Clinical indication: Abdominal pain; Additional info: Ruq abdominal pain TECHNIQUE: Imaging protocol: Computed tomography of the abdomen and pelvis with contrast. Radiation optimization: All CT scans at this facility use at least one of these dose optimization techniques: automated exposure control; mA and/or kV adjustment per patient size (includes targeted exams where dose is matched to clinical indication); or iterative reconstruction. Contrast material: ISOVUE; Contrast volume: 75 ml; Contrast route: IV; COMPARISON: CT ABDOMEN PELVIS W CON 04/22/2022 5:17 PM FINDINGS: Lungs: Visualized lung bases demonstrate no acute abnormality. Liver: No focal liver lesion is identified. Elongated right lobe of the liver is unchanged. Gallbladder and biliary ducts: No visualized gallstones (not all gallstones are visible via CT). No wall thickening or surrounding inflammation. No bile duct dilation. Pancreas: No peripancreatic inflammatory change or significant pancreatic duct dilation. Spleen: Splenic size is within normal limits. No focal splenic lesion is identified. Adrenal glands: The adrenal glands are unremarkable. Kidneys and ureters: The kidneys enhance symmetrically. No hydronephrosis. No renal perfusion defects or perinephric inflammation. No stones in the kidneys or ureters. Stomach and bowel: The stomach is unremarkable. No small bowel obstruction or acute inflammatory change. The colon is not obstructed. No evidence of diverticulosis or acute inflammatory change. Appendix: The appendix is identified. No evidence of acute appendicitis. Intraperitoneal space: No free fluid or free air. Vasculature: The abdominal aorta is nonaneurysmal. Lymph nodes: Unremarkable. No enlarged lymph nodes. Urinary bladder: Unremarkable. Reproductive: No visualized uterine or adnexal mass. Bones/joints: No acute fracture is identified. Soft tissues: Unremarkable. IMPRESSION: No acute abnormality is identified.
[2025-02-12 21:30] LABS: Bacteria,Urine 3+ /lpf; Mucus,Urine 4+ /lpf
--- OUTSIDE RECORDS SUMMARY | 2025-02-12 21:31 | XMS_ITS | Clinical Summary ---
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 Medications No information available. Medications Administered No information available. Allergies, Adverse Reactions, Alerts No information available. Results No information available. Plan of Care No information available. Procedures No information available. Vital Signs No information available. Immunizations No information available. Advance Directives No information available.
--- OUTSIDE RECORDS SUMMARY | 2025-02-12 21:32 | XMS_ITS | Clinical Summary ---
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 40.5 kg (89 lb 4 oz) 99.99%* 2010 4 years 33.6 kg (74 lb) 2009 4 years 32.7 kg (72 lb) 2009 4 years 110.5 cm (3' 7.5 ) 29.4 kg (64 lb 12.8 oz) 99.60%* 99.93%* 2009 3 years 97.2 cm (3' 2.25 ) 18.1 kg (40 lb) 97.91%* 96.97%* 2008 * [facility] (Girls, 2-20 Years) Last Filed Vital Signs Vital Sign Reading [...] Mass Index 44.63 01/25/2025 10:17 AM EST Plan of Treatment Health Maintenance Due Date Last Done Comments Meningococcal B Vaccine (1 of 2 - Standard) 2021 Annual Wellness Exam 05/31/2024 06/01/2023, 01/22/20 16 COVID-19 Vaccine ( - 2024- season) 2024 Influenza Vaccine (#1) 2024 6, 01/22/2016, 12/24/2012, Additional history exists DTaP/TDaP/Td (8 - Td or Tdap) 07/18/2034 07/18/2024, 08/11/2016, 07/12/2009, Additional history exists Hepatitis B Vaccine Completed 02/23/2006, 02/23/2006, 2005, Additional history exists Pneumococcal Vaccine 0-49 Aged Out 2006, 2005, 2005, Additional history exists No longer eligible based on patient's age to complete this topic HPV Completed 11/10/2019, 08/11/2016 Chlamydia Screening Discontinued 07/12/2024, 01/25/2024, 08/19/2023, Additional history exists Goals Goal Patient Goal Type Associated Problems Recent Progress Patient-Stated? Author Maintain a healthy diet, exercise regularly and maintain an ideal body weight General No Mary Payne, CCMA Stay Tobacco Free Lifestyle No Felecia Broderick, DO Procedures Procedure Name Priority Date/Time Associated Diagnosis Comments COMPREHENSIVE METABOLIC PANEL Routine 01/25/2025 11:03 AM EST Rash Lymphadenopathy CBC WITH DIFF Routine 01/25/2025 11:03 AM EST Lymphadenopathy Rash CHLAMYDIA/GC BY TMA Routine 07/12/2024 2 :33 PM EDT Supervision of other normal , antepartum from Last 3 Months or Most Recently Relevant to Health Maintenance Results * (ABNORMAL) CBC WITH DIFF (01/25/2025 11:03 [...] 01/25/2025 2:40 PM EST [facility] Comment:Automated count of m etamyelocytes, myelocytes and promyelocytes. Lymph Percent 28.3 % 01/25/2025 2:40 PM EST [facility] [place] Percent 7.3 % 01/25/2025 2:40 PM EST [facility] Eos Percent 4.1 % 01/25/2025 2:40 PM EST [facility] Baso Percent 0.5 % 01/25/2025 2:40 PM EST [facility] Neut # 4.5 1.6 - 6.1 x10(3)/mcL 01/25/2025 2:40 PM EST [facility] Comment:Neutrophils equals s egs plus bands IMMGRAN# 0.0 0.0 - 0.1 x10(3)/mcL 01/25/2025 2:40 PM EST [facility] Comment:Automated count of m etamyelocytes, myelocytes and promyelocytes. An absolute IG <0.1 is reported as 0.0. Lymph # 2.1 1.2 - 3.9 x10(3)/mcL 01/25/2025 2:40 PM EST [facility] [place] # 0.6 0.3 - 0.9 x10(3)/mcL 01/25/2025 2:40 PM EST [facility] Eos# 0.3 0.0 - 0.5 x10(3)/mcL 01/25/2025 2:40 PM EST [facility], [facility] Baso # 0.0 0.0 - 0.1 x10(3)/mcL 01/25/2025 2:40 PM EST [facility], [facility] Blood VENOUS BLOOD / Unknown Venipuncture / Unknown 01/25/2025 11:03 AM EST 01/25/2025 11:03 AM EST us Felecia Broderick DO HEMATOLOGY ORDERABLES Final Result [facility] [address] , [place] [address] * (ABNORMAL) COMPREHENSIVE METABOLIC PANEL (01/25/2025 11:03 [...] recommended by the National Kidney Foundation - [place] [employer] of Nephrology Task Force. Blood VENOUS BLOOD / Unknown Venipuncture / Unknown 01/25/2025 11:03 AM EST 01/25/2025 11:03 AM EST Felecia Broderick DO CHEMISTRY ORDERABLES Final R esult [facility] [address], [place] [address] * CHLAMYDIA/GC BY TMA (07/12/2024 2:33 PM EDT) Chlamydia trachomatis Not Detected Not Detected 07/13/2024 1:37 AM EDT [facility] Neisseria gonorrhoeae Not Detected Not Detected 07/13/2024 1:37 AM EDT [facility] Swab PART OF UTERINE CERVIX / Unknown 07/12/2024 2:33 PM EDT 07/12/2024 2:33 PM EDT Narrative [facility] - 07/13/2024 1:37 AM EDT Testing methodology is iron pourer mediated amplification (TMA) using the Aptima Combo 2 assay from [employer]. A negative result does not completely rule out a Chlamydia trachomatis or Neisseria gonorrhoeae infection due to potential inhibitors or levels present below the limit of detection by this assay. Results are dependent on proper collection and transport of specimen. This test is indicated for medical purposes only and should not be used for legal or forensic purposes. The performance characteristics of this assay were validated by the testing laboratory. This assay is FDA cleared to test the following specimens: clinician-collected endocervical, vaginal, male urethral swab specimens, rectal swabs, and throat/pharyngeal swabs; patient collected vaginal specimens within a clinic setting; Thin Prep Specimens in PreservCyt Solution; and first-stream, unpreserved male and female urine specimens. Detailed methodology is available upon request. us Vicki Brand CNM MICROBIOLOGY - GENERAL ORDSydney BURCIAGA Final Result [facility] [address], [address] [place], [place] [id number] from Last 3 Months or Most Recently Relevant to Health Maintenance Advance Directives For more information, please contact: [phone] * Full Code (Latest Code Status on File) Date Activated Date Inactivated Comments 07/31/2024 8:50 PM 08/03/2024 10:10 PM * Full Code Date Activated Date Inactivated Comments 02/20/2023 6:46 PM 02/24/2023 11:11 PM Care Teams Fur Scraper Relationship Specialty Start Date End Date Felecia Broderick [place] [place] [address] PCP - General Family Medicine 11/08/24
--- OUTSIDE RECORDS SUMMARY | 2025-02-12 21:32 | XMS_ITS | Encounter Summary ---
Author Organization [facility] Address [address] [place] [address] Care Team Providers Care Deputy Director Of Public Works Name Role Phone Felecia Marie MD Primary Care Provider [phone] Source Comments This information has been disclosed [...] release of HIV test results or diagnoses. [id number] Health Encounter Details Date Type Department Care Team (Late st Contact Info) Description 12/21/2024 Chart Note [facility] INFORMATION MANAGEMENT [address] [place] [id number] Alejo Cervantes DDS, MD [address] [facility]. [place] [address] Social History Tobacco Use Types Packs/Day Years Used Date Smoking Tobacco: Never Assessed Comments Unknown Sex and Gender Information Value Date Recorded Sex Assigned at Not on file Legal Sex Female 9:54 PM EST Gender Identity Not on file Sexual Orientation Not on file documented as of this encounter Plan of Treatment Not on file documented as of this encounter Procedures Procedure Name Priority Date/Time Associated Diagnosis Comments OMS XR PANOREX Routine 12/21/2024 1:43 PM EST documented in this encounter Results * OMS XR Panorex (12/21/2024 1:43 PM EST) Anatomical Region Laterality Modality Other us Alejo Cervantes DDS, MD SCAN DOCS - NO RESULTS Fin al Result documented in this encounter Visit Diagnoses Not on filedocumented in this encounter Care Teams Deputy Director Of Public Works Relationship Specialty Start Date End Date Felecia Marie MD [address] [facility] [id number] [place] [id number] PCP - General Family Medicine 11/14/24 documented as of this encounter
--- OUTSIDE RECORDS SUMMARY | 2025-02-12 21:32 | XMS_ITS | Clinical Summary ---
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 Result * X-ray Portable Chest (11/14/2024 2:18 PM EDT) Anatomical Region Laterality Modality Chest Radiographic Codi ging 11/14/2024 1:49 PM EDT Impressions 11/14/2024 2:32 PM EDT IMPRESSION: Negative supine portable chest. Report Verified by: Dru Bansal MD at 11/14/2024 2:32 PM EDT Narrative 11/14/2024 2:32 PM EDT EXAM: XR PORTABLE CHEST INDICATION: Chest pain, unspecified TECHNIQUE: 1 view of the chest. COMPARISON: 03/17/2007 FINDINGS: Medical Devices: None. Heart and Mediastinum: Cardiomediastinal silhouette is within normal limits. Lungs and Pleura: Lungs are clear. No pleural effusions or evidence for pneumothorax, however sensitivity is limited due to supine positioning. Bones and Soft tissues: No acute abnormalities. Procedure Note Dru Bansal MD - 11/14/2024 EXAM: XR PORTABLE CHEST INDICATION: Chest pain, unspecified TECHNIQUE: 1 view of the chest. COMPARISON: 03/17/2007 FINDINGS: Medical Devices: None. Heart and Mediastinum: Cardiomediastinal silhouette is within normallimits. Lungs and Pleura: Lungs are clear. No pleural effusions or evidence forpneumothorax, however sensitivity is limited due to supine positioning. Bones and Soft tissues: No acute abnormalities. IMPRESSION: Negative supine portable chest. Report Verified by: Dru Bansal MD at 11/14/2024 2:32 PM EDT Rebecca Cox MD IMG DIAGNOSTIC IMAGING ORD ERABLES Final Result * HCG Qualitative w/Reflex to HCG Quant (11/14/2024 2:16 PM EDT) HCG Qualitative Negative Negative 3:24 PM EDT [facility] Plasma 11/14/2024 2:16 PM EDT 11/14/2024 2:24 PM EDT Rebecca Cox MD LAB BLOOD ORDERABLES Final Result [facility] [address] [place] [address], [facility] * Differential (11/14/2024 2:16 PM EDT) Neutrophils Relative 71.5 40.0 - 80.0 % 11/14/2024 2:58 PM EDT [facility] Lymphocytes Relative 18.6 15.0 - 45.0 % 11/14/2024 2:58 PM EDT [facility] Monocytes Relative 5.4 0.0 - 12.0 % 11/14/2024 2:58 PM EDT [facility] Eosinophils Relative 4.0 0.0 - 8.0 % 11/14/2024 2:58 PM EDT [facility] Basophils Relative 0.5 0.0 - 1.0 % 11/14/2024 2:58 PM EDT [facility] nRBC 0 0 - 0 /100 WBC 11/14/2024 2:58 PM EDT [facility] Neutrophils Absolute 6,936 1,520 - 8,640 /uL 11/14/2024 2:58 PM EDT [facility] Lymphocytes Absolute 1,804 570 - 4,860 /uL 11/14/2024 2:58 PM EDT [facility] Monocytes Absolute 524 0 - 1,296 /uL 11/14/2024 2:58 PM EDT [facility] Eosinophils Absolute 388 0 - 864 /uL 11/14/2024 2:58 PM EDT [facility] Basophils Absolute 49 0 - 108 /uL 11/14/2024 2:58 PM EDT [facility] Whole Blood 11/14/2024 2:16 PM EDT 11/14/2024 2:34 PM EDT us Rebecca Cox MD LAB BLOOD ORDERABLES Final Result Performing Organization Address City/State/[facility] Co de Phone Number [facility] [address] * (ABNORMAL) CBC (11/14/2024 2:16 PM EDT) WBC 9.7 3.8 - 10.8 10E3/uL 11/14/2024 2:58 PM EDT [facility] RBC 4.56 3.80 - 5.10 10E6/uL 11/14/2024 2:58 PM EDT [facility] Hemoglobin 12.2 11.7 - 15.5 g/dL 11/14/2024 2:58 PM EDT [facility] Hematocrit 36.8 35.0 - 45.0 % 11/14/2024 2:58 PM EDT [facility] MCV 80.6 80.0 - 100.0 fL 11/14/2024 2:58 PM EDT [facility] MCH 26.8(L) 27.0 - 33.0 pg 11/14/2024 2:58 PM EDT [facility] MCHC 33.2 32.0 - 36.0 g/dL 11/14/2024 2:58 PM EDT [facility] RDW 15.2(H) 11.0 - 15.0 % 11/14/2024 2:58 PM EDT [facility] Platelets 331 140 - 400 10E3/uL 11/14/2024 2:58 PM EDT [facility] MPV 8.6 7.5 - 11.5 fL 11/14/2024 2:58 PM EDT [facility] Whole Blood 11/14/2024 2:16 PM EDT 11/14/2024 2:34 PM EDT Rebecca Cox MD LAB BLOOD ORDERABLES Final Result [facility] [address] [facility] * Phosphorus (11/14/2024 2:16 PM EDT) Phosphorus 2.9 2.1 - 4.7 mg/dL 11/14/2024 2:47 PM EDT [facility] Plasma 11/14/2024 2:16 PM EDT 11/14/2024 2:24 PM EDT Rebecca Cox MD LAB BLOOD ORDERABLES Final Result [facility] [address] [facility] * Magnesium (11/14/2024 2:16 PM EDT) Magnesium 2.0 1.5 - 2.5 mg/dL 11/14/2024 2:47 PM EDT [facility] Plasma 11/14/2024 2:16 PM EDT 11/14/2024 2:24 PM EDT Rebecca Cox MD LAB BLOOD ORDERABLES Final Result [facility] [address] [place] [address], [facility] * Basic metabolic panel (11/14/2024 2:16 PM EDT) Sodium 139 133 - 146 mmol/L 11/14/2024 2:47 PM EDT [facility] Potassium 4.2 3.5 - 5.3 mmol/L 11/14/2024 2:47 PM EDT [facility] Chloride 108 98 - 110 mmol/L 11/14/2024 2:47 PM EDT [facility] CO2 24 21 - 33 mmol/L 11/14/2024 2:47 PM EDT [facility] Anion Gap 7 3 - 16 mmol/L 11/14/2024 2:47 PM EDT [facility] BUN 11 7 - 25 mg/dL 11/14/2024 2:47 PM EDT [facility] Creatinine 0.77 0.60 - 1.30 mg/dL 11/14/2024 2:47 PM EDT [facility] Glucose 100 70 - 100 mg/dL 11/14/2024 2:47 PM EDT [facility] Calcium 9.5 8.6 - 10.3 mg/dL 11/14/2024 2:47 PM EDT [facility] Osmolality, Calculated 287 278 - 305 mOsm/kg 11/14/2024 2:47 PM EDT [facility] EGFR >90 11/14/2024 2:47 PM EDT [facility] Comment: As of 2021, the estimated GFR is calculated using the 2020 Chronic Kidney Disease Epidemiology Collaboration (CKD-EPI) equation. In line with the NKF-ASN Task Force Recommendations, this equation does not include a coefficient for race. A single eGFR value is calculated for each patient. The reference interval is >60 mL/min/1.73m2. eGFR values greater than 90 will be reported as >90mL/min/1.73m2. Reference: Gomez C, Jennifer M, Jennifer DC, Richa ND, Bruna CA, Casey LA, et al. A Unifying Approach for GFR Estimation: Recommendations of the NKF-ASN Task Force on Reassessing the inclusion of Race in Diagnosing Kidney Disease. Am J Kidney Dis. 2020. GFR is estimated using creatinine, age, and sex. Patient's values should be interpreted as a trend. Below 90 mL/min/1.73m2, the patient may have renal disease. For additional information: www.kidney.org Plasma 11/14/2024 2:16 PM EDT 11/14/2024 2:24 PM EDT Rebecca Cox MD LAB BLOOD ORDERABLES Final Result [facility] [address] [place] [address], [facility] from Last 3 Months Insurance [facility] MEDICAID Care Teams Site Promotion Agent Relationship Specialty Start Date End Date Felecia Marie MD [address] [place] [address] [id number] RAFA Fletcher [phone] PCP - General Family Medicine 11/14/24
--- OUTSIDE RECORDS SUMMARY | 2025-02-12 21:32 | XMS_ITS | Encounter Summary ---
Author Organization [facility] Address [address] [facility] [place] [address] Care Team Providers Care Air Bag Builder Name Role Phone Felecia Marie DO Primary Care Provider [phone] Reason for Visit * Reason Onset Date Comments PAC 12/19/2024 TERMINATION Encounter Details Date Type Department Care Team (Late st Contact Info) Description 12/19/2024 Telephone [facility] [address] [place] [phone] Sandrine Marinelli, Clerical Staff [facility] (TERMINATION) Social History Tobacco Use Types Packs/Day Years Used Date Smoking Tobacco: Never Smokeless Tobacco: Former Alcohol Use Standard Drinks/Week Comments No 0 (1 standard drink = 0.6 oz pur e alcohol) [facility] Utilities Answer Date Recorded In the past 12 months has [employer] electric, gas, oil, or water [employer] threatened to shut off services in your home? No 08/02/2024 Overall Financial Resource Strain (CARDIA) Answe r Date Recorded How hard is it for you to pa y for the very basics like food, housing, medical care, and heating? Not very hard 08/02/2024 PHQ-2 Answer Date Recorded PHQ-2 Total Score 2 08/25/2024 [facility] [place] of Occupat ional Health - Occupational Stress [...] things needed for daily living? No [facility]/05/2019 [facility] IP Transportation Answer D ate Recorded In [...] on file documented as of this encounter Functional Status * Is the person deaf or does he/she have serious difficulty hearing? Answer Date of Assessment Author No 07/28/2024 12:36 AM Zoya Cardona, MJ * Is the person blind or does he/she have serious difficulty seeing even when wearing glasses? Answer Date of Assessment Author No 07/28/2024 12:36 AM Zoya Cardona, MJ * Does this person have serious difficulty walking or climbing stairs? Answer Date of Assessment Author No 07/28/2024 12:36 AM Zoya Cardona, RN * Does this person have difficulty dressing or bathing? Answer Date of Assessment Author No 07/28/2024 12:36 AM Zoya Cardona, RN * Because of a physical, mental or emotional condition, does this person have difficulty doing errands alone such as visiting a doctor's office or shopping? Answer Date of Assessment Author No 07/28/2024 12:36 AM EDT Zoya Neff RN documented as of this encounter Mental Status * Because of a physical, mental or emotional condition, does this person have serious difficulty concentrating, remembering or making decisions? Answer Entry Date Author No 07/28/2024 12:36 AM EDT Zoya Neff RN documented in this encounter Miscellaneous Notes * Telephone Encounter - Sandrine Marinelli, Clerical Staff - 12/19/2024 1:54 PM EST [facility] TERMINATION, Reason: Categorically Ineligible documented in this encounter Plan of Treatment Not on file documented as of this encounter Goals Goal Patient Goal Type Associated Problems Recent Progress Patient-Stated? Author Maintain a healthy diet, exercise regularly and maintain an ideal body weight General No Mary Payne CCMA Stay Tobacco Free Lifestyle No Felecia Marie DO documented as of this encounter Visit Diagnoses Not on filedocumented in this encounter Additional Health Concerns Assessment Noted Time PHQ-9 Depression Total Score: 2 08/26/19 1:32 AM EDT PHQ-2 Depression Total Score: 2 08/26/19 1:32 AM EDT documented as of this encounter Care Teams Air Bag Builder Relationship Specialty Start Date End Date Fele[place] [address] PCP - General Family Medicine 11/08/24 documented as of this encounter
--- OUTSIDE RECORDS SUMMARY | 2025-02-12 21:32 | XMS_ITS | Encounter Summary ---
Author Organization [place] Address [place] [address] Care Team Providers Care Cattle Dealer Name Role Phone Felecia Marie DO Primary Care Provider Encounter Details Date Type Department Care Team (Late st Contact Info) Description 01/25/2025 Results Follow-Up [facility] [address] [place] [address] Felecia Marie DO [address] [facility] CBC WITH DIFF, COMPREHENSIVE METABOLIC PANEL Social History Tobacco Use Types Packs/Day Years Used Date Smoking Tobacco: Never Smokeless Tobacco: Former Alcohol Use Standard Drinks/Week Comments No 0 (1 standard drink = 0.6 oz pur e alcohol) [facility] Utilities Answer Date Recorded In the past 12 months has [employer] electric, gas, oil, or water [employer] threatened to shut off services in your home? No 08/02/2024 Overall Financial Resource Strain (CARDIA) Lissette r Date Recorded How hard is it for you to pa y for the very basics like food, housing, medical care, and heating? Not very hard 08/02/2024 PHQ-2 Answer Date Recorded PHQ-2 Total Score 2 08/25/2024 [facility] of Occupat ional Health - Occupational Stress [...] things needed for daily living? No 12/05/2019 [facility] IP Transportation Answer D ate Recorded In [...] Mikala Pierre MA documented in this encounter Plan of Treatment [...] documented as of this encounter Care Teams Cattle Dealer Relationship Specialty Start Date End Date Felecia Marie DO [address] [place] [phone] PCP - General Family Medicine 11/08/24 documented as of this encounter
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
[2025-02-12 21:35] LABS: Hematocrit 39.2 % (37.0-47.0); Hemoglobin 12.5 g/dL (12.2-16.2); Immature Granulocytes % 0.3 %; Mean Corpuscular HGB Conc 31.9 g/dL (31.8-35.4); Mean Corpuscular Hemoglobin 26.9 pg (27.0-31.2); Mean Corpuscular Volume 84.5 fl (81-99); Nucleated Red Blood Cells % 0 %; Platelet Count 342 K/mm3 (142-424); Red Blood Count 4.64 M/mm3 (4.20-5.40); Red Cell Distribution Width-SD 45.2 fL; White Blood Count 9.9 K/mm3 (4.5-13.0)
[2025-02-12 21:38] LABS: Urine Pregnancy, HCG Qual. Negative (Negative)
[2025-02-12 21:39] VITALS: BP 124/80; PULSE 72; RESP 16; TEMP 37; O2SAT 98; BMI 42.9
[2025-02-12 21:45] LABS: Alanine Aminotransferase 29 U/L (12-78); Albumin Level 4.6 g/dl (3.5-5.0); Albumin/Globulin Ratio 1.5 (1.1-1.8); Alkaline Phosphatase 87 U/L (38-126); Anion Gap 12.3 mEq/L (5-15); Aspartate Amino Transferase 27 U/L (14-36); Bilirubin,Total 0.4 mg/dl (0.2-1.3); Blood Urea Nitrogen 13 mg/dl (7-17); Calcium 9.8 mg/dl (8.4-10.2); Carbon Dioxide 25 mmol/L (22.0-30.0); Chloride 104 mmol/L (98-107); Creatinine Clearance Estimated 87 mL/min (50-200); Creatinine,Serum 0.90 mg/dl (0.52-1.04); Estimated Glomerular Filt Rate 81 ml/min (>60); GFR (African American) 98 ML/MIN (>60); Globulin 3.0 g/dL (1.3-3.2); Glucose 95 mg/dl (74-100); INR 0.98 (0.9-1.1); Lipase 67 U/L (23-300); Potassium 4.3 mmoL/L (3.5-5.1); Prothrombin Time 10.9 seconds (10.1-12.5); Sodium 137 mmol/L (136-145); Total Protein,Serum 7.6 g/dl (6.3-8.2)
[2025-02-12 21:50] LABS: C-Reactive Protein 5.3 mg/L (0-4)
[2025-02-12] MEDS: MORPHINE 4MG/ML SYRINGE 4 MG IV (21:51)
[2025-02-12] MEDS: ONDANSETRON 4MG/2ML VIAL 4 MG IV (21:51)
[2025-02-12] MEDS: IOPAMIDOL-370 (76%);100ML BOTTLE 75 ML IV (22:15)
[2025-02-12] MEDS: SODIUM CHLORIDE 0.9% 10ML SYR (RAD ONLY) 10 ML IV (22:15)
[2025-02-12 22:17] VITALS: PULSE 82; O2SAT 99
[2025-02-12 22:30] VITALS: PULSE 67; O2SAT 98
[2025-02-12 22:31] VITALS: BP 121/71; PULSE 68; O2SAT 98
[2025-02-12 22:45] VITALS: PULSE 69; O2SAT 99
[2025-02-12 22:48] LABS: Hepatitis C Ab Qual. W/ RFX NEGATIVE (Negative)
[2025-02-12] MEDS: KETOROLAC 15MG/ML VIAL 15 MG IV (22:49)
[2025-02-12 22:53] VITALS: BP 121/71; PULSE 65; RESP 18; TEMP 36.8; O2SAT 100
== END 2025-02-12 22:54 | disposition home or self-care (01) ==
PROVIDERS: Emergency Provider Student in an Organized Health Care Education/Training Program
DX: R10.11 Right upper quadrant pain (principal); R11.0 Nausea
CPT/HCPCS: 74177; 80053; 81001; 81025; 83605; 83690; 85025; 85610; 86140; 86803; 87086; 87389; 96374; 96375; 99285; J1885; J2270; J2405; Q9967